=== PATIENT | female | born 1995 | race Caucasian/White ===

== ENCOUNTER 2024-03-05 19:24 | Inpatient (IN) | payer MEDICAID, SELFPAY ==
[2024-03-05 20:15] VITALS: BP 114/78; PULSE 79; RESP 16; TEMP 36.6; O2SAT 96; BMI 21.1
--- NOTE | 2024-03-05 20:50 | ED_ITS ---
HPI - General Adult General Chief complaint: Abdominal Pain Stated complaint: Head pain, stomach pain, altered mental status Time Seen by Provider: 03/05/24 20:49 History of Present Illness HPI narrative: Pt reporting stomach pain, head pain via pointing and facial expressions of pain. Today, new shaking all over per nursing home staff with Blank expressions. Pt is non?verbal. Gallbladder removed around 2015? No rebound tenderness when abd is palpated. Pt did receive Tylenol (1830- 1000mg) and Tums (2 tabs) today. Pt is having bowel movements. 28-year-old woman presenting to the emergency department with concern of likely abdominal pain to his nonverbal. Lives in a nursing home. Various illnesses in the nursing home 4 weeks ago with COVID in the nursing home though she has never tested positive and has been tested every other day. Has been intermittently ?urpy over the last couple of weeks. Today with shaking all over and suspected to be related to pain in her abdomen. Has been having regular normal bowel movements. Status post cholecystectomy. No fever. No vomiting today. Tried some Tylenol and Tums today. With intermittent symptoms as above they have been trying to get in to clinic or some lab draw but all of it is scheduling out a ways. Related Data Home Medications ?Medication ?Instructions ?Recorded ?Confirmed melatonin 3 mg capsule 3 mg PO HS PRN 03/05/24 03/05/24 omeprazole 40 mg capsule,delayed 40 mg PO QAM 03/05/24 03/05/24 release Allergies Allergy/AdvReac Type Severity Reaction Status Date / Time atropine Allergy Intermediate Verified 03/05/24 21:26 Review of Systems Status of ROS: Reports: unobtainable due to medical condition (Parents answering questions) PFSH [facility] Surgical History History of cholecystectomy ?Z90.49 - Acquired absence of other specified parts of digestive tract (ICD- 10) Social History What is your current living situation?: I presently have a place to live Problems where you live: no known problems Problems where you live details: N/A In the past 12 months, utilities in danger of being shut off: no In past 12 months, lack of transportation kept you from medical appts, meetings, work, or getting things needed for daily living: unable to answer In the past 12 mos, have been you worried that your food would run out before you had money to buy more?: unable to answer In the past 12 mos, the food you bought just didn't last and you didn't have money to buy more?: unable to answer Highest level of school completed/degree received: 12th grade, no diploma Smoking Status: Never smoker Do you use any of these nicotine containing products: None Second hand tobacco smoke exposure: No How often do you have a drink containing alcohol: never AUDIT-C Alcohol total score: 0 Non-prescribed substance use: denies use How often does anyone, including family, friends and others, physically hurt you : unable to answer How often does anyone, including family, friends and others, insult or talk down to you: unable to answer How often does anyone, including family, friends and others, threaten you with harm: unable to answer How often does anyone, including family, friends and others, scream or curse at you: unable to answer service: No Exam Narrative: Exam Narrative: Does help with exam as encouraged by parents. Is breathing easily. Lungs appear to be clear. Trace systolic murmur? Heart in regular rate Abdomen is overall soft. No peritoneal signs. Distant bowel sounds. Moving all extremi ties without difficulty. She is well-perfused Const: Vital Signs, click to edit/add: Vital Signs - 24 hr 03/05/24 20:15 03/06/24 01:25 03/06/24 01:25 Temperature 97.9 F 97.9 F Pulse Rate [Left P ulse Oximeter] 79 Pulse Rate [Pulse Oximeter] 78 Respiratory Rate 16 16 16 Blood Pressure [Ri ght Arm] 115/78 Blood Pressure [Ri ght Upper Arm] 114/78 Pulse Oximetry 96 100 100 Oxygen Delivery Me thod Room Air Room Air Room Air Documenting provider has reviewed patient's vital signs: yes Course Vital Signs Vital signs: Initial Vital Signs Temperature 97.9 F 03/05/24 20:15 Temperature Source Temporal Artery Scan 03/05/24 20:15 Pulse Rate 79 03/05/24 20:15 Pulse Rhythm Regular 03/05/24 20:15 Respiratory Rate 16 03/05/24 20:15 Blood Pressure 114/78 03/05/24 20:15 Blood Pressure Mean 90 03/05/24 20:15 Blood Pressure Position Sitting 03/05/24 20:15 Pulse Oximetry 96 03/05/24 20:15 Oxygen Delivery Method Room Air 03/05/24 20:15 Vital Signs Temperature 97.9 F 03/05/24 20:15 Pulse Rate 79 03/05/24 20:15 Respiratory Rate 16 03/05/24 20:15 Blood Pressure 114/78 03/05/24 20:15 Pulse Oximetry 96 03/05/24 20:15 Oxygen Delivery Method Room Air 03/05/24 20:15 Temperature 97.9 F 03/06/24 01:25 Pulse Rate 78 03/06/24 01:25 Respiratory Rate 16 03/06/24 01:25 Blood Pressure 115/78 03/06/24 01:25 Pulse Oximetry 100 03/06/24 01:25 Oxygen Delivery Method Room Air 03/06/24 01:25 Medications Administered Medications: Generic Name Dose Route Start Last Admin Trade Name Freq PRN Reason Stop Dose Admin Sodium Chloride 1,000 mls @ 75 mls/hr 03/06/24 02:43 03/06/24 03:17 0.9 % Sodium Chloride 1000 Ml IV 75 mls/hr .[id number] CLAUDIA Administration Sodium Chloride 5 ml 03/06/24 02:40 03/06/24 03:19 Sodium Chloride 0.9 % (Flush) 10 Ml Syringe IVF 5 ml .FLUSH PRN Administration Discontinued Medications Generic Name Dose Route Start Last Admin Trade Name Freq PRN Reason Stop Dose Admin Sodium Chloride 1,000 mls @ 1,000 mls/hr 03/05/24 21:05 03/05/24 22:35 0.9 % Sodium Chloride 1000 Ml IV 03/05/24 22:04 Infused .Q1H ONE Infusion Medical Decision Making [facility] Narrative Medical decision making narrative: Due to duration of intermittent symptoms and nonverbal nature and unsure degree of pain tolerance I think next level imaging would be necessary to help clarify the situation. Would presume some degree of constipation or possible partial bowel obstruction/ileus. Appendicitis? Mesenteric adenitis? Symptoms do not seem isolated to pelvic organs though leaking ovarian cyst or intermittent torsion could be in differential. I reviewed CT imaging with a marked more gaseous distention of colon and stool retention. INDICATION: Down syndrome patient with intermittent abdominal pain for 2 weeks TECHNIQUE: CT Abdomen and pelvis with i.v. contrast. Coronal and sagittal reformats were obtained. CONTRAST: 58 mL Isovue 370 COMPARISON: None FINDINGS: Lower chest: Unremarkable. Liver: Unremarkable. Spleen: Unremarkable. Pancreas: Unremarkable. Gallbladder: Previous cholecystectomy noted with no significant intra- or extrahepatic biliary ductal dilatation seen. Kidney: Unremarkable. No kidney or ureteral stones or obstruction seen. Adrenal: Unremarkable. Bowel: Severe gaseous distention of the cecum is present measuring 10.4 cm and mild gaseous distention of the transverse colon is noted. Decompressed small bowel loops are seen in the right flank displacing the ascending colon medially. The appendix is normal in appearance and size. Vascular: Unremarkable. Lymph: Unremarkable. Peritoneum: Unremarkable. No pneumoperitoneum is seen. Trace amount of ascites is present and is likely physiologic in origin. Pelvis: An IUD is present in the uterine cavity near the fundus with no identified complications. Soft tissue: Unremarkable. Bone: Unremarkable for age. IMPRESSIONS: 1. Severe gaseous distention of the cecum is present measuring 10.4 cm and mild gaseous distention of the transverse colon is noted. Findings may be due to colonic ileus or prolonged supine positioning. Evacuation of bowel gas may be assisted by placing the patient in right lateral decubitus and subsequently in the prone position. 2. Decompressed small bowel loops are seen in the right flank displacing the ascending colon medially. Findings may be due to a nonobstructing internal hernia. Have discussed these findings with general surgery. Admission with concern of potential pending volvulus Lab Data Lab results reviewed: Yes I reviewed the patient's lab results Labs: Lab Results 03/05/24 03/05/24 Range/Units 21:18 21:23 WBC 6.18 (4.50-11.00) K/uL RBC 4.38 (4.00-5.20) m/uL Hgb 13.6 (12.0-16.0) gm/dL Hct 40.0 (33.0-51.0) % MCV 91 (80-100) fL MCH 31 (26-34) pg MCHC 34 (32-36) gm/dL RDW Coeff of Jose 13.3 (11.5-15.5) % Plt Count 207 (140-440) K/uL Neut % (Auto) 61.4 (42.0-72.0) % Lymph % (Auto) 29.3 (20-44) % [facility] % (Auto) 6.8 (0.0-11.0) % Eos % (Auto) 0.5 (0.0-7.0) % Baso % (Auto) 1.8 (0.0-3.0) % Neut # (Auto) 3.80 (1.7-7.0) K/uL Lymph # (Auto) 1.81 (0.90-2.90) K/uL [facility] [place] # (Auto) 0.40 (0.00-0.90) K/UL Eos # (Auto) 0.03 (0.00-0.50) K/uL Baso # (Auto) 0.11 (0.00-0.30) K/uL Abs Immat Gran (auto) 0.01 (0.00-0.30) K/uL Imm/Tot Granulo (auto) 0.2 % Sodium 137 (135-149) mmol/L Potassium 3.7 (3.6-5.1) mmol/L Chloride 103 (96-114) mmol/L Carbon Dioxide 28 (20-32) mmol/L Anion Gap 6 L (7-15) mEq/L BUN 6 (5-24) mg/dL Creatinine 0.8 (0.5-1.5) mg/dL Estimated Creat Clear 86.61 Estimated GFR 103 ml/min Glucose 96 (60-115) mg/dL Calcium 8.7 (8.4-10.6) mg/dL Total Bilirubin 0.3 (0.1-1.5) mg/dL Direct Bilirubin 0.2 (0.0-0.5) mg/dL AST 24 (12-35) U/L ALT 16 (4-35) U/L Alkaline Phosphatase 105 (40-150) U/L C-Reactive Protein < 0.5 L (0.5-1.0) mg/dL Total Protein 6.7 (6.0-8.3) g/dL Albumin 3.9 (3.3-5.0) g/dL HCG, Qual Negative (Negative) Discharge Plan Discharge Clinical Impression: Colon distention, Abdominal pain Patient Disposition: Admitted As Observation Condition: Stable
--- NOTE | 2024-03-05 21:06 | CRLHL7_ITS ---
For Patients: As a result of the Century Cures Act, medical imaging exams and procedure reports are released immediately into your electronic medical record. You may view this report before your referring provider. If you have questions, please contact your health care provider. INDICATION: Down syndrome patient with intermittent abdominal pain for 2 weeks TECHNIQUE: CT Abdomen and pelvis with i.v. contrast. Coronal and sagittal reformats were obtained. CONTRAST: 58 mL Isovue 370 COMPARISON: None FINDINGS: Lower chest: Unremarkable. Liver: Unremarkable. Spleen: Unremarkable. Pancreas: Unremarkable. Gallbladder: Previous cholecystectomy noted with no significant intra- or extrahepatic biliary ductal dilatation seen. Kidney: Unremarkable. No kidney or ureteral stones or obstruction seen. Adrenal: Unremarkable. Bowel: Severe gaseous distention of the cecum is present measuring 10.4 cm and mild gaseous distention of the transverse colon is noted. Decompressed small bowel loops are seen in the right flank displacing the ascending colon medially. The appendix is normal in appearance and size. Vascular: Unremarkable. Lymph: Unremarkable. Peritoneum: Unremarkable. No pneumoperitoneum is seen. Trace amount of ascites is present and is likely physiologic in origin. Pelvis: An IUD is present in the uterine cavity near the fundus with no identified complications. Soft tissue: Unremarkable. Bone: Unremarkable for age. IMPRESSIONS: 1. Severe gaseous distention of the cecum is present measuring 10.4 cm and mild gaseous distention of the transverse colon is noted. Findings may be due to colonic ileus or prolonged supine positioning. Evacuation of bowel gas may be assisted by placing the patient in right lateral decubitus and subsequently in the prone position. 2. Decompressed small bowel loops are seen in the right flank displacing the ascending colon medially. Findings may be due to a nonobstructing internal hernia. Dictated by Austin Vital MD @ 03/05/2024 11:05:05 PM Please note that all CT scans at this facility use dose modulation, iterative reconstruction, and/or weight-based dosing when appropriate to reduce radiation dose to as low as reasonably achievable. Dictated by: Austin Vital MD @ 03/05/2024 23:05:12 (Electronically Signed)
[2024-03-05 21:29] LABS: Basophils Absolute Auto 0.11 K/uL (0.00-0.30); Basophils Percent Auto 1.8 % (0.0-3.0); Eosinophils Absolute Auto 0.03 K/uL (0.00-0.50); Eosinophils Percent Auto 0.5 % (0.0-7.0); Hemoglobin* 13.6 gm/dL (12.0-16.0); Immature Granulocytes Abs Auto 0.01 K/uL (0.00-0.30); Immature Granulocytes Pct Auto 0.2 %; Lymphocytes Absolute Auto 1.81 K/uL (0.90-2.90); Lymphocytes Percent Auto 29.3 % (20-44); Mean Corpuscular HGB Conc 34 gm/dL (32-36); Mean Corpuscular Hemoglobin 31 pg (26-34); Mean Corpuscular Volume 91 fL (80-100); Monocytes Percent Auto 6.8 % (0.0-11.0); Neutrophils Percent Auto 61.4 % (42.0-72.0); Platelet Count* 207 K/uL (140-440); RDW Coefficient of Variation % 13.3 % (11.5-15.5); Red Blood Count 4.38 m/uL (4.00-5.20); White Blood Count* 6.18 K/uL (4.50-11.00)
[2024-03-05 21:40] LABS: Slide Review Reflex No
[2024-03-05] MEDS: 0.9 % SODIUM CHLORIDE 1000 ml 1,000 ML IV (21:49)
[2024-03-05 21:53] LABS: Albumin* 3.9 g/dL (3.3-5.0); Chloride* 103 mmol/L (96-114)
[2024-03-05 21:54] LABS: Potassium* 3.7 mmol/L (3.6-5.1); Sodium* 137 mmol/L (135-149)
[2024-03-05 21:56] LABS: Anion Gap 6 mEq/L (7-15); Aspartate Amino Transferase* 24 U/L (12-35); Bilirubin Direct* 0.2 mg/dL (0.0-0.5); Bilirubin Total* 0.3 mg/dL (0.1-1.5); Carbon Dioxide* 28 mmol/L (20-32); Creatinine* 0.8 mg/dL (0.5-1.5); Est. Creatinine Clearance* 86.61; Estimated Glomerular Filt Rate 103 ml/min; Total Protein* 6.7 g/dL (6.0-8.3)
[2024-03-05 21:57] LABS: Alanine Aminotransferase* 16 U/L (4-35); Alkaline Phosphatase* 105 U/L (40-150); Blood Urea Nitrogen* 6 mg/dL (5-24); Calcium* 8.7 mg/dL (8.4-10.6); Glucose* 96 mg/dL (60-115)
[2024-03-05 22:00] LABS: C Reactive Protein* < 0.5 mg/dL (0.5-1.0)
[2024-03-05 22:09] LABS: HCG Qualitative Serum* Negative (Negative)
[2024-03-06] VITALS (8 sets, daily range): BP systolic 91–126; BP diastolic 61–87; PULSE 69–93; RESP 16–18; TEMP 36.6–37.2; O2SAT 96–100; BMI 21.5
--- NOTE | 2024-03-06 02:55 | W.PM.THH&P_ITS ---
Telehealth- H&P: HPI History of Present Illness Date Seen: 03/06/24 Chief complaint: Head pain, stomach pain, altered mental status Narrative: Yoselin Johnson is seen as an Interactive Telehealth visit. Yoselin Johnson: This is a 28-year-old female who is a nonverbal, Down syndrome patient who presents to the hospital with abdominal pain. History is provided by the father in the room and by documentation in the chart. When the patient presented to the hospital, she presented to the emergency room with complaints of abdominal pain. [place] [facility] [facility] she has been having episodes of shaking and blank expressions. This was a new issue. She has been having loose stools over the past 24 hours and they described as even normal bowel movements. In the ER she was noted to be vital signs stable. She was given IV fluids. She underwent CT scan of the abdomen which showed severe gaseous distention of the cecum measuring 10 cm and mild gaseous distention of the transverse colon. There is a decompressed small bowel loops. There was concern for colonic ileus. This case was discussed with the surgical team and the ER physician who recommended admission to the hospital and observation. Clinically the patient did not have any peritoneal signs. Conversation held with father who explained to me that recently the patient had been on a trial of antibiotics. 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 It is a rare condition that can occur in patients with strep throat. As result she has been on a variety of antibiotics to treat her strep A infections. Patient's father notes that she has had some episodes of diarrhea lately. Review of Systems Status of ROS: Reports: unobtainable due to medical condition (patient is non- verbal) PFSH PFS Social History Smoking Status: Never smoker How often do you have a drink containing alcohol: never AUDIT-C Alcohol total score: 0 Non-prescribed substance use: denies use Meds Home Medications and Allergies Home Medications ?Medication ?Instructions ?Recorded ?Confirmed ?Type melatonin 3 mg capsule 3 mg PO HS PRN 03/05/24 03/05/24 History omeprazole 40 mg capsule,delayed 40 mg PO QAM 03/05/24 03/05/24 History release Allergies Allergy/AdvReac Type Severity Reaction Status Date / Time atropine Allergy Intermediate Verified 03/05/24 21:26 Exam Narrative Exam Narrative: Physical Exam GENERAL: ?vital signs reviewed, well developed and nourished, in no distress HEENT: pupils are equal round and reactive to light, extraocular movements are grossly within normal limits and oral mucosa is moist. NECK: Supple without lymphadenopathy or thyromegaly according to nursing staff examination observation HEART: Regular rate and rhythm without any rubs, murmurs, or gallops. LUNGS: Clear to auscultation bilaterally with good air movement throughout ABDOMEN: Observation from nurse assisted exam, Positive bowel sounds noted. EXTREMITIES: ? No focal strength deficit is observed. SKIN:? Observed warm and dry with color normal Const Vital Signs, click to edit/add: Vital Signs - 24 hr 03/05/24 20:15 Temperature 97.9 F Pulse Rate [Left Pulse Oximeter] 79 Respiratory Rate 16 Blood Pressure [Right Upper Arm] 114/78 Pulse Oximetry 96 Oxygen Delivery Method Room Air Common normals: no apparent distress General appearance: cooperative and comfortable Orientation/consciousness: Yes awake Eye Common normals: PERRL and EOMs intact bilaterally Pupil: PERRL Resp Common normals: normal respiratory effort Neuro Sensorium/orientation: awake Hospitalist - H&P: Result Labs Labs: Short CBC 03/05/24 Range/Units 21:23 WBC 6.18 (4.50-11.00) K/uL Hgb 13.6 (12.0-16.0) gm/dL Hct 40.0 (33.0-51.0) % Plt Count 207 (140-440) K/uL BMP 03/05/24 21:23 Sodium 137 Potassium 3.7 Chloride 103 Carbon Dioxide 28 BUN 6 Creatinine 0.8 Glucose 96 Calcium 8.7 Liver Function 03/05/24 Range/Units 21:23 Total Bilirubin 0.3 (0.1-1.5) mg/dL Direct Bilirubin 0.2 (0.0-0.5) mg/dL AST 24 (12-35) U/L ALT 16 (4-35) U/L Alkaline Phosphatase 105 (40-150) U/L Albumin 3.9 (3.3-5.0) g/dL Assessment and Plan Assessment and plan (1) Abdominal pain: Status: Acute (2) Colon distention: Status: Acute Plan This patient appears to have a colonic ileus. Differentials include constipation and other conditions such as potential volvulus. However I would also want to rule out that this patient does not have C. difficile infection especially given the recent antibiotic and diarrhea illness. A portion of patients who have C. difficile present with atypical presentations of ileus. In the meantime I like to keep the patient as n.p.o. and put her on normal saline at 75 mL/h. The surgical team has been alerted about this patient and plans to see the patient in the morning. Total Time Spent Total Time Spent: Telehealth Visit Today's History and Physical is provided via interactive telehealth by Dr. Tony Branch MD. Patient is located at [facility]. Provider is located at [facility]. Nursing staff assisted with the patient's examination. The visit being done today meets criteria for a telehealth visit and the patient or patient's parent and/or gaurdian is aware the visit is a telehealth visit. Camera Start Time 2:50 AM Camera End Time 3:05 AM Telehealth: Statement Statement Telehealth Visit: Today's History and Physical is provided via interactive telehealth by Tony Branch MD.? Patient is located at [facility].? Provider is located at [facility].? Nursing staff assisted with the patient's exam. The visit being done today meets criteria for a telehealth visit and the patient or patient?s parent/guardian is aware the visit is a telehealth visit. Camera Start Time: 02:50 Camera End Time: 03:05
[2024-03-06] MEDS: 0.9 % SODIUM CHLORIDE 1000 ml 1,000 ML 75 ML IV ×2 (03:17→14:18)
[2024-03-06] MEDS: SODIUM CHLORIDE 0.9 % (FLUSH) 10 ML SYRINGE 5 ML IVF (03:19)
--- NOTE | 2024-03-06 07:35 | PC.NURSE ---
end of shift note: pleasant non-verbal young lady who presents to the unit for medial abdominal pain. pt resides at [facility]. father (alli) accompanies pt and providing much of pt's history. pt ambulates independently within room. passing flatus. several loose stools in the last couple weeks per father's report. per pt pain increases with sitting, bending, and palpation. pt and father slept well remainder of night.
--- NOTE | 2024-03-06 08:54 | CRLHL7_ITS ---
For Patients: As a result of the Century Cures Act, medical imaging exams and procedure reports are released immediately into your electronic medical record. You may view this report before your referring provider. If you have questions, please contact your health care provider. Indication: Colonic distention Technique: Abdomen 1 view, 2 films Comparison: None Findings/Impression: Bowel: No evidence of obstruction. Moderate amount of stool within the colon including across the hepatic flexure and rectosigmoid. Soft tissues: Intrauterine device projects over the pelvis. Right upper quadrant surgical clips. Bones: Unremarkable for age. Dictated by Andre Cole MD @ 03/06/2024 9:45:51 AM (Electronically Signed)
[2024-03-06 09:12] LABS: Appearance Urine Clear (Clear); Bilirubin Urine Negative (Negative); Blood Urine Negative (Negative); Color Urine Yellow (Yellow); Glucose Urine Negative (Negative); Ketones Urine Negative (Negative); Leukocyte Esterase Urine Negative (Negative); Nitrite Urine Negative (Negative); Protein Urine Negative (Negative); Specific Gravity Urine 1.015 (1.000-1.030); Urobilinogen Urine 0.2 (0.2-1.0)
[2024-03-06 09:22] LABS: RBC Urine 0-2 (0-2); Squamous Epithelial Cell Urine Few (None-Few); WBC Urine 0-2 (0-5)
[2024-03-06 12:13] LABS: C.Difficile Negative (Negative); CDIFFEPI 027 PRESUMPTIVE NEGATIVE (Negative)
[2024-03-06] MEDS: polyethylene glycoL 3350 17 GM PACK PO ×3 (12:39→15:46)
--- NOTE | 2024-03-06 13:28 | P.GSCN_ITS ---
Documented by User: Bettina Escobar 03/06/24 14:13 History of Present Illness Consult details Time Seen by Provider: 11:30 Date Seen: 03/06/24 Consult date: 03/06/24 Reason for consult: abdominal pain Requesting physician: Christopher Prince Narrative: Yoselin, a 28 year old non-verbal down syndrome female, presented to the ED yesterday for abdominal pain. Patient's mom and dad are bedside and provide the history from the residential the patient resides in. Patient began to have abdominal pain starting around 2 weeks ago. Her body language and mannerisms began to change in response to the pain. Patient would point to the center of her chest and stomach in response to the pain. Pain seems to have been on and off the first week and consistent the second week with more facial grimacing and shaking/bearing down. Changing positioning seems to aggravate it. Tried Tylenol and Tums to help with the pain. Patient has had soft, formed, consistent bowel movements throughout the course of the pain. Denies blood or mucus in the stool. Denies diarrhea, constipation, vomiting, fever, or any other signs of infection. Last EGD in 2015. Patient was diagnosed with gastritis post cholecystectomy. Additional GI diagnoses include celiac disease. No additional abdominal surgeries. No colonoscopy history. No blood thinner use. No blood clot history. No bleeding disorder history. No adverse reaction to anesthesia. Dad expresses that the patient has been on antibiotics in November, December, and January due to high Strep A counts and the suspicion for PANDAS due to the neurological changes they saw in the patient and the resolution of symptoms with antibiotics. He expresses concern that the antibiotics may have added to the patient's symptoms. Patient seen laying in bed on her ipad. Parents state her abdominal pain seems to be manageable since admission. Review of Systems Status of ROS: Reports: 6 or more systems reviewed and unremarkable except as noted in History and below Narrative: Reports diffuse middle abdominal pain. Denies diarrhea, constipation, vomiting, fever, or any other signs of infection. Denies blood or mucus in the stool. PFSH PFS Surgical History History of cholecystectomy ?Z90.49 - Acquired absence of other specified parts of digestive tract (ICD- 10) Social History What is your current living situation?: I presently have a place to live Problems where you live: no known problems Problems where you live details: N/A In the past 12 months, utilities in danger of being shut off: no In past 12 months, lack of transportation kept you from medical appts, meetings, work, or getting things needed for daily living: unable to answer In the past 12 mos, have been you worried that your food would run out before you had money to buy more?: unable to answer In the past 12 mos, the food you bought just didn't last and you didn't have money to buy more?: unable to answer Highest level of school completed/degree received: 12th grade, no diploma Smoking Status: Never smoker Do you use any of these nicotine containing products: None Second hand tobacco smoke exposure: No How often do you have a drink containing alcohol: never AUDIT-C Alcohol total score: 0 Non-prescribed substance use: denies use How often does anyone, including family, friends and others, physically hurt you : unable to answer How often does anyone, including family, friends and others, insult or talk down to you: unable to answer How often does anyone, including family, friends and others, threaten you with harm: unable to answer How often does anyone, including family, friends and others, scream or curse at you: unable to answer service: No Meds Home Medications and Allergies Home Medications ?Medication ?Instructions ?Recorded ?Confirmed ?Type melatonin 3 mg capsule 3 mg PO HS PRN 03/05/24 03/05/24 History omeprazole 40 mg capsule,delayed 40 mg PO QAM 03/05/24 03/05/24 History release Allergies Allergy/AdvReac Type Severity Reaction Status Date / Time atropine Allergy Intermediate Verified 03/05/24 21:26 Exam Narrative: Exam Narrative: General: Patient seen laying in bed on her ipad. Non-verbal. In no acute distress. Respiratory: Clear to auscultation. No wheezing or rhonchi. Cardio: RRRR. S1 and S2 normal. GI: Non distended. Bowel sounds presents but slightly hypoactive. Soft. Non- tender. No guarding. Const: Vital Signs, click to edit/add: Vital Signs - 24 hr 03/05/24 20:15 03/06/24 01:25 03/06/24 01:25 Temperature 97.9 F 97.9 F Pulse Rate [Left P ulse Oximeter] 79 Pulse Rate [Pulse Oximeter] 78 Respiratory Rate 16 16 16 Blood Pressure [Ri ght Arm] 115/78 Blood Pressure [Ri ght Upper Arm] 114/78 Pulse Oximetry 96 100 100 Oxygen Delivery Me thod Room Air Room Air Room Air 03/06/24 08:15 03/06/24 08:15 03/06/24 12:04 Temperature 98.1 F 98.3 F Pulse Rate [Left P ulse Oximeter] Pulse Rate [Pulse Oximeter] 69 69 83 Respiratory Rate 16 16 18 Blood Pressure [Ri ght Arm] 91/61 112/70 Blood Pressure [Ri ght Upper Arm] Pulse Oximetry 96 100 Oxygen Delivery Me thod Room Air Room Air Results Labs Labs: Abnormal lab results 03/05/24 Range/Units 21:23 Anion Gap 6 L (7-15) mEq/L C-Reactive Protein < 0.5 L (0.5-1.0) mg/dL Diabetes panel 03/05/24 Range/Units 21:23 Sodium 137 (135-149) mmol/L Potassium 3.7 (3.6-5.1) mmol/L Chloride 103 (96-114) mmol/L Carbon Dioxide 28 (20-32) mmol/L BUN 6 (5-24) mg/dL Creatinine 0.8 (0.5-1.5) mg/dL Glucose 96 (60-115) mg/dL Calcium 8.7 (8.4-10.6) mg/dL AST 24 (12-35) U/L ALT 16 (4-35) U/L Alkaline Phosphatase 105 (40-150) U/L Total Protein 6.7 (6.0-8.3) g/dL Albumin 3.9 (3.3-5.0) g/dL Calcium panel 03/05/24 Range/Units 21:23 Calcium 8.7 (8.4-10.6) mg/dL Albumin 3.9 (3.3-5.0) g/dL Pituitary panel 03/05/24 Range/Units 21:23 Sodium 137 (135-149) mmol/L Potassium 3.7 (3.6-5.1) mmol/L Chloride 103 (96-114) mmol/L Carbon Dioxide 28 (20-32) mmol/L BUN 6 (5-24) mg/dL Creatinine 0.8 (0.5-1.5) mg/dL Glucose 96 (60-115) mg/dL Calcium 8.7 (8.4-10.6) mg/dL Adrenal panel 03/05/24 Range/Units 21:23 Sodium 137 (135-149) mmol/L Potassium 3.7 (3.6-5.1) mmol/L Chloride 103 (96-114) mmol/L Carbon Dioxide 28 (20-32) mmol/L BUN 6 (5-24) mg/dL Creatinine 0.8 (0.5-1.5) mg/dL Glucose 96 (60-115) mg/dL Calcium 8.7 (8.4-10.6) mg/dL Total Bilirubin 0.3 (0.1-1.5) mg/dL AST 24 (12-35) U/L ALT 16 (4-35) U/L Alkaline Phosphatase 105 (40-150) U/L Total Protein 6.7 (6.0-8.3) g/dL Albumin 3.9 (3.3-5.0) g/dL All other labs normal. WBC WNL at 6.18. Electrolytes WNL. Bili WNL at 0.3. LFTs WNL. CRP WNL at 0.5. Imaging Abdomen CT scan report/results: report reviewed and image reviewed Abdominal ultrasound report/results: report reviewed and image reviewed Additional studies: Abdominal/Pelvis CT on 03/05/24: 1. Severe gaseous distention of the cecum is present measuring 10.4 cm and mild gaseous distention of the transverse colon is noted. Findings may be due to colonic ileus or prolonged supine positioning. Evacuation of bowel gas may be assisted by placing the patient in right lateral decubitus and subsequently in the prone position. 2. Decompressed small bowel loops are seen in the right flank displacing the ascending colon medially. Findings may be due to a nonobstructing internal hernia. Abdominal ultrasound on 03/06/24: Bowel: No evidence of obstruction. Moderate amount of stool within the colon including across the hepatic flexure and rectosigmoid. Progress Note:A&P Assessment and plan (1) Colon distention: Status: Acute Assessment and Plan: Patient is a 28 year old non-verbal down syndrome female with a two week history of abdominal pain. Imaging showed distension of the cecum and transverse colon with no evidence of obstruction. 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 Vitals WNL. Unremarkable labs. Physical exam is unremarkable. Surgery in not indicated at this moment. Plan: -CLD -IV fluids -IV pain medication -Serial physical exams -Abdominal radiographs every 12-24 hours to evaluate colon diameter. -Encourage ambulation. Bettina SANTANA-S personally scribed for Dr. Joshi and completed the HPI, physical exam, and chart. Documented by User: Lali Joshi MD 03/06/24 14:21 History of Present Illness Consult details Consult date: 03/06/24 Review of Systems Status of ROS: Reports: unobtainable due to medical condition PFSH PFS Surgical History History of cholecystectomy ?Z90.49 - Acquired absence of other specified parts of digestive tract (ICD- 10) Social History What is your current living situation?: I presently have a place to live Problems where you live: no known problems Problems where you live details: N/A In the past 12 months, utilities in danger of being shut off: no In past 12 months, lack of transportation kept you from medical appts, meetings, work, or getting things needed for daily living: unable to answer In the past 12 mos, have been you worried that your food would run out before you had money to buy more?: unable to answer In the past 12 mos, the food you bought just didn't last and you didn't have money to buy more?: unable to answer Highest level of school completed/degree received: 12th grade, no diploma Smoking Status: Never smoker Do you use any of these nicotine containing products: None Second hand tobacco smoke exposure: No How often do you have a drink containing alcohol: never AUDIT-C Alcohol total score: 0 Non-prescribed substance use: denies use How often does anyone, including family, friends and others, physically hurt you : unable to answer How often does anyone, including family, friends and others, insult or talk down to you: unable to answer How often does anyone, including family, friends and others, threaten you with harm: unable to answer How often does anyone, including family, friends and others, scream or curse at you: unable to answer service: No Meds Home Medications and Allergies Home Medications ?Medication ?Instructions ?Recorded ?Confirmed ?Type melatonin 3 mg capsule 3 mg PO HS PRN 03/05/24 03/05/24 History omeprazole 40 mg capsule,delayed 40 mg PO QAM 03/05/24 03/05/24 History release Allergies Allergy/AdvReac Type Severity Reaction Status Date / Time atropine Allergy Intermediate Verified 03/05/24 21:26 Results Imaging Abdominal x-ray: report reviewed and image reviewed Progress Note:A&P Assessment and plan (1) Colon distention: Status: Acute Assessment and Plan: Patient is a 28 year old non-verbal down syndrome female with a two week history of abdominal pain. Imaging showed significant distension of the cecum (10.2 cm) and transverse colon with no evidence of obstruction. Concern for [place] vs primary colonic dysmotility. Patient is not on any anticholinergics or antipsychotics. Vitals WNL. Unremarkable labs. Physical exam is unremarkable. Recommend conservative management at this time. Plan: -ok for clear liquid diet -IV fluids -IV pain medication, recommend sparing use -Serial physical exams -Abdominal radiographs every 12-24 hours to evaluate colon diameter. - tap water enemas, will consider gastrograffin enema if not productive - miralax, ok with patient not having any nausea or vomiting -Encourage ambulation. Bettina LOGAN personally scribed for Dr. Joshi and completed the HPI, physical exam, and chart.
--- NOTE | 2024-03-06 15:11 | P.IMPN_ITS ---
Progress Note: A&P Assessment and plan (1) Abdominal pain: Problem details: Suspected to be due to colonic pseudo-obstruction. Responding well to enema and oral MiraLax. Continue to monitor for symptoms and repeat imaging. Status: Acute (2) Colonic pseudoobstruction: Problem details: Likely cause of abdominal pain. Responding to conservative measures. Status: Acute (3) Down syndrome: Status: Acute (4) Celiac disease: Status: Acute (5) History of esophagogastroduodenoscopy (EGD): Problem details: Most recently August 2016 Status: Acute Plan Continue in hospital for management of colonic pseudo-obstruction and constipation. Ongoing evaluation of abdominal pain. Time Spent With Patient Total time spent: 55 minutes Subjective Date Seen: 03/06/24 Interval history: 28-year-old female with down syndrome from [facility] presents with recent history of abdominal pain and abnormal behaviors. She is nonverbal but has indicated to staff that she seems to have some discomfort. She seems in some distress and this is reflected in a change in her behavior as well. She has not had any other obvious signs of illness such as respiratory illness o r fever. She has been eating normally. According to her mother she has been having soft daily bowel movements as well. She does have a history of constipation and was on MiraLax up until a couple years ago. She has been diagnosed with celiac disease on biopsy. She is lactose intolerance and has avoided night shade bed she doubles due to those causing diarrhea. She has had previous cholecystectomy and upper endoscopy on 2 different occasions. Exam Narrative: Exam Narrative: She is alert and appears in no distress. Seen with her parents. She is nonverbal but appears to follow simple instructions and answer simple questions with hand gestures and nonverbal communication. She cooperates well. Respirations are clear to auscultation. Cardiovascular: S1, S2, regular rate and rhythm. Abdomen with active bowel sounds. Abdomen is soft. She has relatively diffuse guarding but no obvious tenderness. No mass with limited examination. External genitalia normal. No rash Const: Vital Signs, click to edit/add: Vital Signs - 24 hr 03/05/24 20:15 03/06/24 01:25 03/06/24 01:25 Temperature 97.9 F 97.9 F Pulse Rate [Left P ulse Oximeter] 79 Pulse Rate [Pulse Oximeter] 78 Respiratory Rate 16 16 16 Blood Pressure [Ri ght Arm] 115/78 Blood Pressure [Ri ght Upper Arm] 114/78 Pulse Oximetry 96 100 100 Oxygen Delivery Me thod Room Air Room Air Room Air 03/06/24 08:15 03/06/24 08:15 03/06/24 12:04 Temperature 98.1 F 98.3 F Pulse Rate [Left P ulse Oximeter] Pulse Rate [Pulse Oximeter] 69 69 83 Respiratory Rate 16 16 18 Blood Pressure [Ri ght Arm] 91/61 112/70 Blood Pressure [Ri ght Upper Arm] Pulse Oximetry 96 100 Oxygen Delivery Me thod Room Air Room Air Documenting provider has reviewed patient's vital signs: yes Labs Labs: Laboratory Results - last 24 hr 03/05/24 03/05/24 03/06/24 21:18 21:23 09:04 WBC 6.18 RBC 4.38 Hgb 13.6 Hct 40.0 MCV 91 MCH 31 MCHC 34 RDW Coeff of Jose 13.3 Plt Count 207 Neut % (Auto) 61.4 Lymph % (Auto) 29.3 [place] % (Auto) 6.8 Eos % (Auto) 0.5 Baso % (Auto) 1.8 Neut # (Auto) 3.80 Lymph # (Auto) 1.81 [place] # (Auto) 0.40 Eos # (Auto) 0.03 Baso # (Auto) 0.11 Abs Immat Gran (auto) 0.01 Imm/Tot Granulo (auto) 0.2 Sodium 137 Potassium 3.7 Chloride 103 Carbon Dioxide 28 Anion Gap 6 L BUN 6 Creatinine 0.8 Estimated Creat Clear 86.61 Estimated GFR 103 Glucose 96 Calcium 8.7 Total Bilirubin 0.3 Direct Bilirubin 0.2 AST 24 ALT 16 Alkaline Phosphatase 105 C-Reactive Protein < 0.5 L Total Protein 6.7 Albumin 3.9 HCG, Qual Negative Urine Color Yellow Urine Appearance Clear Urine pH 7.0 Ur Specific Stevenson 1.015 Urine Protein Negative Urine Glucose (UA) Negative Urine Ketones Negative Urine Blood Negative Urine Nitrite Negative Urine Bilirubin Negative Urine Urobilinogen 0.2 Ur Leukocyte Esterase Negative Urine RBC 0-2 Urine WBC 0-2 Ur Squamous Epith Cells Few Urine Bacteria None Stl C. diff Tox B Gene Stl C. diff [id number] 03/06/24 11:05 WBC RBC Hgb Hct MCV MCH MCHC RDW Coeff of Jose Plt Count Neut % (Auto) Lymph % (Auto) [place] % (Auto) Eos % (Auto) Baso % (Auto) Neut # (Auto) Lymph # (Auto) [place] # (Auto) Eos # (Auto) Baso # (Auto) Abs Immat Gran (auto) Imm/Tot Granulo (auto) Sodium Potassium Chloride Carbon Dioxide Anion Gap BUN Creatinine Estimated Creat Clear Estimated GFR Glucose Calcium Total Bilirubin Direct Bilirubin AST ALT Alkaline Phosphatase C-Reactive Protein Total Protein Albumin HCG, Qual Urine Color Urine Appearance Urine pH Ur Specific Stevenson Urine Protein Urine Glucose (UA) Urine Ketones Urine Blood Urine Nitrite Urine Bilirubin Urine Urobilinogen Ur Leukocyte Esterase Urine RBC Urine WBC Ur Squamous Epith Cells Urine Bacteria Stl C. diff Tox B Gene Negative Stl C. diff [id number] PRESUMPTIVE NEGATIVE
--- NOTE | 2024-03-06 16:41 | PC.NURSE ---
Shift [id number]: Pt is pleasant, alert and non-verbal at baseline. Pt. has Father (Sandip) and mother (Marcia) at bedside to assist with communication. Pt has pain in the abdominal area, noted by faces scale, motioning and grimace. Pt had and enema this morning with positive response. Flatus and bowel movements have been present since. Pt is up with stand by assist, tolerates well. Advanced to a clear liquid diet and tolerating well.
--- NOTE | 2024-03-06 18:00 | CRLHL7_ITS ---
For Patients: As a result of the Century Cures Act, medical imaging exams and procedure reports are released immediately into your electronic medical record. You may view this report before your referring provider. If you have questions, please contact your health care provider. INDICATION: Colonic distention TECHNIQUE: Two view abdomen. FINDINGS: Mild gaseous distention of bowel loops. No bowel obstruction seen bowel gas pattern nonspecific. Cholecystectomy clips. Dextroconvex curvature of the lumbar spine. Moderate stool burden. IUD in the pelvis Dictated by Alyssa Peoples MD @ 03/06/2024 6:50:09 PM (Electronically Signed)
[2024-03-06] MEDS: ACETAMINOPHEN 325 MG TABLET 650 MG PO (19:06)
--- NOTE | 2024-03-06 19:31 | PC.NURSE ---
End of shift-- Very pleasant and cooperative, alert, but baseline non-verbal patient. VSS and highest temp this shift 99.0F Pt occasionally appeared to have abdominal pain, but it appears to resolve quickly without intervention. LS CTA. She tolerated small amounts of clear liquids without difficulty. Pt was up to the BR with SBA and tolerated it well. She has continued to have loose stools this evening. Parents at bedside today and appear loving and supportive. Report to JYOTI Snider. All questions answered.
[2024-03-07 03:00] VITALS: BP 107/71; PULSE 81; RESP 18; TEMP 36.5; O2SAT 97
[2024-03-07] MEDS: 0.9 % SODIUM CHLORIDE 1000 ml 1,000 ML 75 ML IV (03:16)
--- NOTE | 2024-03-07 06:32 | PC.NURSE ---
End of shift : Pt has been A&O, VSS and afebrile. PRN Tylenol was given at beginning of the shift for low grade temp of 99 for previous nurse. Per parents, pt usually runs in the 97 range. She has not c/o pain overnight. Denies nausea & lightheadedness. PIV in left AC infusing NS @ 75 mL/hr. She is SBA for ambulation & transfers. Continent of B&B. She?s had x3 small liquid BM?s overnight. Tolerating clear liquids well. Pt slept well in between cares. ?
[2024-03-07 07:00] VITALS: BP 107/70; PULSE 75; RESP 18; TEMP 36.3; O2SAT 95
--- NOTE | 2024-03-07 09:49 | CRLHL7_ITS ---
For Patients: As a result of the Century Cures Act, medical imaging exams and procedure reports are released immediately into your electronic medical record. You may view this report before your referring provider. If you have questions, please contact your health care provider. Indication: Follow-up colonic pseudo-obstruction Technique: Supine images of the abdomen Comparison: March 06, 2024 Findings: Cetera collapse in the right upper quadrant. No acute osseous abnormality. Scoliosis. IUD in the central pelvis. Mild gaseous distention of bowel slightly improved when compared to the prior examination. Impression: Mild diffuse gaseous distention of bowel slightly improved when compared to the prior examination. Dictated by Gianluca Ugalde MD @ 03/07/2024 10:31:33 AM (Electronically Signed)
--- NOTE | 2024-03-07 11:29 | PM.GSPN ---
Subjective Subjective Date Seen: 03/07/24 Interval history: Patient is nonverbal. Dad is at bedside. He does think she looks more comfortable. She did have multiple bowel movements yesterday. She has been tolerating liquids without difficulty. No concerns. Exam Narrative: Exam Narrative: General: Alert and oriented, no acute distress Abdomen: Soft, nontender and nondistended Const: Vital Signs, click to edit/add: Vital Signs - 24 hr 03/06/24 12:04 03/06/24 15:00 03/06/24 15:47 Temperature 98.3 F 98.4 F Pulse Rate [Pulse Oximeter] 83 93 93 Respiratory Rate 18 18 18 Blood Pressure [Ri ght Arm] 112/70 126/87 Pulse Oximetry 100 100 Oxygen Delivery Me thod Room Air Room Air 03/06/24 20:28 03/06/24 20:30 03/06/24 23:49 Temperature 98.9 F 98.9 F Pulse Rate [Pulse Oximeter] 80 81 Respiratory Rate 16 18 Blood Pressure [Ri ght Arm] 120/84 Pulse Oximetry 100 Oxygen Delivery Me thod Room Air 03/06/24 23:49 03/07/24 03:00 03/07/24 07:00 Temperature 98.8 F 97.7 F 97.4 F L Pulse Rate [Pulse Oximeter] 81 81 75 Respiratory Rate 18 18 18 Blood Pressure [Ri ght Arm] 107/65 107/71 107/70 Pulse Oximetry 100 97 95 Oxygen Delivery Me thod Room Air Room Air Room Air 03/07/24 07:00 Temperature Pulse Rate [Pulse Oximeter] 75 Respiratory Rate 18 Blood Pressure [Ri ght Arm] Pulse Oximetry Oxygen Delivery Me thod Labs/Imaging Imaging Imaging: Abdominal x-ray showing gaseous distention of the colon, improved compared to yesterday. Progress Note:A&P Assessment and plan (1) Colon distention: Status: Acute Assessment and Plan: Patient is a 28 year old non-verbal down syndrome female with a two week history of abdominal pain. Imaging concerning for [place]'s with cecal dilation of greater than 10 cm. She has had multiple bowel movements since admission with abdominal x-ray demonstrating less stool burden. Abdominal exam is benign pain improved. Okay to advance diet. Recommend patient continue on a bowel regimen of MiraLax and fiber daily.
--- NOTE | 2024-03-07 13:42 | P.DS_ITS ---
DS: Providers Provider Date Seen: 03/07/24 Date of admission: 03/06/24 02:40 Primary care physician: Niesha Michele PA-C Admitting Clinician: Tony Branch MD Attending Physician on discharge: Fredy Prince MD Date of Discharge: 03/07/24 DS: Diagnosis Discharge Diagnosis (1) Colonic pseudoobstruction: Status: Acute Problem details: Likely cause of abdominal pain. Responding to conservative measures. Plan ongoing outpatient regimen with daily MiraLax and Metamucil so that she can have at least 1 formed but soft stool every day DS: Summary Hospital Course Hospital Course: 28-year-old female with down syndrome from [facility] presents with recent history of abdominal pain and abnormal behaviors. She is nonverbal but has indicated to staff that she seems to have some discomfort. She seems in some distress and this is reflected in a change in her behavior as well. She has not had any other obvious signs of illness such as respiratory illness or fever. She has been eating normally. According to her mother she has been having soft daily bowel movements as well. She does have a history of constipation and was on MiraLax up until a couple years ago. She has been diagnosed with celiac disease on biopsy. She is lactose intolerance and has avoided night shade bed she doubles due to those causing diarrhea. She has had previous cholecystectomy and upper endoscopy on 2 different occasions. 03/07/2024: Patient is seen with her parents for follow-up of her [facility]. She has had small loose stools yesterday and overnight. She is tolerating clear liquid diet and now tolerating a regular diet. No vomiting. Status at Discharge Overall status at discharge: patient is progressing back to baseline Time Spent with Patient Time attestation: Total time spent providing and/or coordinating discharge services: 40 minutes Time spent: Greater than 30 minutes Exam Narrative: Exam Narrative: She is pleasant and cooperative. She appears to understand my speech but remains nonverbal. She does communicate somewhat by facial expression and nodding and pointing. She appears in no distress. Abdomen with bowel sounds are active. Abdomen is soft without tenderness. Const: Vital Signs, click to edit/add: Vital Signs - 24 hr 03/06/24 15:00 03/06/24 15:47 03/06/24 20:28 Temperature 98.4 F 98.9 F Pulse Rate [Pulse Oximeter] 93 93 Respiratory Rate 18 18 Blood Pressure [Ri ght Arm] 126/87 Pulse Oximetry 100 Oxygen Delivery Me thod Room Air 03/06/24 20:30 03/06/24 23:49 03/06/24 23:49 Temperature 98.9 F 98.8 F Pulse Rate [Pulse Oximeter] 80 81 81 Respiratory Rate 16 18 18 Blood Pressure [Ri ght Arm] 120/84 107/65 Pulse Oximetry 100 100 Oxygen Delivery Me thod Room Air Room Air 03/07/24 03:00 03/07/24 07:00 03/07/24 07:00 Temperature 97.7 F 97.4 F L Pulse Rate [Pulse Oximeter] 81 75 75 Respiratory Rate 18 18 18 Blood Pressure [Ri ght Arm] 107/71 107/70 Pulse Oximetry 97 95 Oxygen Delivery Me thod Room Air Room Air DS: Data Imaging CT scan - abdomen: Radiologist's impression: INDICATION: Down syndrome patient with intermittent abdominal pain for 2 weeks TECHNIQUE: CT Abdomen and pelvis with i.v. contrast. Coronal and sagittal reformats were obtained. CONTRAST: 58 mL Isovue 370 COMPARISON: None FINDINGS: Lower chest: Unremarkable. Liver: Unremarkable. Spleen: Unremarkable. Pancreas: Unremarkable. Gallbladder: Previous cholecystectomy noted with no significant intra- or extrahepatic biliary ductal dilatation seen. Kidney: Unremarkable. No kidney or ureteral stones or obstruction seen. Adrenal: Unremarkable. Bowel: Severe gaseous distention of the cecum is present measuring 10.4 cm and mild gaseous distention of the transverse colon is noted. Decompressed small bowel loops are seen in the right flank displacing the ascending colon medially. The appendix is normal in appearance and size. Vascular: Unremarkable. Lymph: Unremarkable. Peritoneum: Unremarkable. No pneumoperitoneum is seen. Trace amount of ascites is present and is likely physiologic in origin. Pelvis: An IUD is present in the uterine cavity near the fundus with no identified complications. Soft tissue: Unremarkable. Bone: Unremarkable for age. IMPRESSIONS: 1. Severe gaseous distention of the cecum is present measuring 10.4 cm and mild gaseous distention of the transverse colon is noted. Findings may be due to colonic ileus or prolonged supine positioning. Evacuation of bowel gas may be assisted by placing the patient in right lateral decubitus and subsequently in the prone position. 2. Decompressed small bowel loops are seen in the right flank displacing the ascending colon medially. Findings may be due to a nonobstructing internal hernia. Discharge Plan Discharge Disposition: Home w/ Parent or Adult Date of Admission: 03/06/24 02:40 Attending Provider on Discharge: Christopher Prince Consulting Providers: Lali Joshi Primary Care Provider: Niesha Michele Condition: Stable Anticipated Discharge Date/Time: 03/07/24 11:33 Discharge Medications: New polyethylene glycol 3350 [Miralax] 17 gram/dose powder 17 g PO DAILY Qty: 510 3RF Metamucil 3.4 gram/5.4 gram powder 1 tbsp PO DAILY Qty: 660 3RF Rx Instructions: mix into at least 8 oz of water or juice before administering Continued melatonin 3 mg capsule 3 mg PO HS PRN omeprazole 40 mg capsule,delayed release(DR/EC) 40 mg PO QAM Discharge Orders: Discharge Order (Routine); Ordered 03/07/24 Ordered By: Christopher Prince Patient Education: Laxative, Bulk-forming (By mouth), Polyethylene Glycol 3350 (By mouth), Bowel Obstruction (DC) Additional Instructions: Monitor bowel function to make sure you are having a a soft bowel movement every day. Activity Level: No Restrictions Discharge Diet: Regular Follow Up Appointments: Niesha Michele, EDILBERTO [Primary Care Provider] - 03/19/24 2:00 pm ([facility] for follow up with PCP) Forms: MobileHelp Info Instructions
== END 2024-03-07 14:24 | disposition home or self-care (01) | DRG 254 ==
LOC: ED 23:58 → MEDSURG 03-06 01:11
PROVIDERS: Family Medicine; Admitting Provider Student in an Organized Health Care Education/Training Program; Emergency Provider Family Medicine; PCP Physician Assistant Medical; Visit Provider Student in an Organized Health Care Education/Training Program
DX: K63.89 Other specified diseases of intestine (principal); R10.9 Unspecified abdominal pain; Z90.49 Acquired absence of other specified parts of digestive tract; Q90.9 Down syndrome, unspecified; K90.0 Celiac disease; D89.89 Other specified disorders involving the immune mechanism, not elsewhere classified; E73.9 Lactose intolerance, unspecified; F81.9 Developmental disorder of scholastic skills, unspecified
CPT/HCPCS: 36415; 74018; 74177; 80048; 80076; 81001; 84703; 85025; 86140; 87081; 87493; 99284; 99285; A9270; J7030; Q9967

== ENCOUNTER 2024-03-17 09:37 | Emergency (ER) | payer MEDICAID, SELFPAY ==
[2024-03-17 10:03] VITALS: BP 111/66; PULSE 80; RESP 18; TEMP 36.6; O2SAT 100
--- NOTE | 2024-03-17 10:37 | CRLHL7_ITS ---
For Patients: As a result of the Century Cures Act, medical imaging exams and procedure reports are released immediately into your electronic medical record. You may view this report before your referring provider. If you have questions, please contact your health care provider. Indication: CONSTIPATION, ABD PAIN. Technique: Abdomen 3 view. Comparison: Abdominal radiographs dated 03/07/2024. Findings/Impression: Bowel: Bowel gas pattern is normal. Prominent left colonic stool burden, which can be seen the setting of constipation. Soft tissues: No sign of free air. No sign of soft tissue mass. No suspicious calcifications. Bones: No acute findings. Redemonstrated thoracolumbar dextrocurvature. Dictated by Tito Fuentes MD @ 03/17/2024 11:09:48 AM (Electronically Signed)
[2024-03-17 11:31] LABS: Lactate Sepsis w/Reflex* 1.1 mmol/L (0.5-1.9)
[2024-03-17 11:35] LABS: Basophils Absolute Auto 0.09 K/uL (0.00-0.30); Basophils Percent Auto 1.8 % (0.0-3.0); Eosinophils Absolute Auto 0.03 K/uL (0.00-0.50); Eosinophils Percent Auto 0.6 % (0.0-7.0); Hematocrit 43.5 % (33.0-51.0); Hemoglobin* 14.5 gm/dL (12.0-16.0); Lymphocytes Absolute Auto 1.07 K/uL (0.90-2.90); Lymphocytes Percent Auto 21.6 % (20-44); Mean Corpuscular HGB Conc 33 gm/dL (32-36); Mean Corpuscular Hemoglobin 31 pg (26-34); Mean Corpuscular Volume 92 fL (80-100); Monocytes Percent Auto 6.5 % (0.0-11.0); Neutrophils Absolute Auto 3.45 K/uL (1.7-7.0); Neutrophils Percent Auto 69.5 % (42.0-72.0); Platelet Count* 220 K/uL (140-440); RDW Coefficient of Variation % 13.5 % (11.5-15.5); Red Blood Count 4.73 m/uL (4.00-5.20); White Blood Count* 4.96 K/uL (4.50-11.00)
[2024-03-17 11:41] LABS: Appearance Urine Clear (Clear); Bilirubin Urine Negative (Negative); Blood Urine 3+ (Negative); Color Urine Yellow (Yellow); Glucose Urine Negative (Negative); Ketones Urine Negative (Negative); Leukocyte Esterase Urine Trace (Negative); Nitrite Urine Negative (Negative); Protein Urine Negative (Negative); Specific Gravity Urine 1.015 (1.000-1.030); Urobilinogen Urine 0.2 (0.2-1.0)
[2024-03-17 11:45] LABS: Ur HCG Qualitative* Negative (Negative)
[2024-03-17 11:48] LABS: Squamous Epithelial Cell Urine Few (None-Few); WBC Urine 0-2 (0-5)
[2024-03-17 11:48] LABS: Slide Review Reflex No
[2024-03-17 11:55] LABS: Chloride* 103 mmol/L (96-114); Potassium* 3.9 mmol/L (3.6-5.1); Sodium* 138 mmol/L (135-149)
[2024-03-17 11:58] LABS: Creatinine* 0.8 mg/dL (0.5-1.5); Estimated Glomerular Filt Rate 103 ml/min
[2024-03-17 11:59] LABS: Anion Gap 6 mEq/L (7-15); Blood Urea Nitrogen* 8 mg/dL (5-24); Calcium* 9.1 mg/dL (8.4-10.6); Carbon Dioxide* 29 mmol/L (20-32); Glucose* 93 mg/dL (60-115)
[2024-03-17 12:02] LABS: C Reactive Protein* < 0.5 mg/dL (0.5-1.0)
--- NOTE | 2024-03-17 15:26 | ED_ITS ---
HPI - General Adult General Date Seen: 03/17/24 Chief complaint: Abdominal Pain Stated complaint: Ongoing GI issues was seen here last week Time Seen by Provider: 03/17/24 10:05 Source: family Mode of arrival: ambulatory Limitations: physical limitation History of Present Illness HPI narrative: Patient is a 28-year-old young woman with Down syndrome, her parents [facility] for evaluation of possible ongoing abdominal pain. She was seen here on the , had a CT scan and labs at that time which were notable for significant stool burden. She is on MiraLax, her parents say that since that visit they has seen GI, the recommendation was to double the dose of daily MiraLax as she still not having regular stools. Apparently that had to go through some sort of process with the portal from the GI clinic and it has not happened yet so she is still on the single dose of MiraLax. They report she had a small bowel movement a couple of days ago but nothing since then. Today she was eating breakfast and then stood up and was shaking all over, then sat back down and was staring into space. 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 They are understanding is that she should not continue to be treated with antibiotics however. They are wondering if she should see a neurologist. They are also wondering if she needs a colonoscopy that was recommended by GI for next week. She has not had fevers, vomiting, or diarrhea. She is most nonverbal, does seem to respond to some questions from her parents but they indicate that she will essentially always answer in the affirmative regardless of the true answer. She had not urinated yet today, her mom says that she does feel like she needs to go but she had her hold off until she got here. Related Data Home Medications ?Medication ?Instructions ?Recorded ?Confirmed melatonin 3 mg capsule 3 mg PO HS PRN 03/05/24 03/05/24 omeprazole 40 mg capsule,delayed 40 mg PO QAM 03/05/24 03/05/24 release Previous Rx's ?Medication ?Instructions ?Recorded polyethylene glycol 3350 17 17 g PO DAILY #510 grams 03/07/24 gram/dose oral powder (Miralax) psyllium husk 3.4 gram/5.4 gram 1 tbsp PO DAILY #660 grams 03/07/24 oral powder (Metamucil) Allergies Allergy/AdvReac Type Severity Reaction Status Date / Time atropine Allergy Intermediate Verified 03/05/24 21:26 Review of Systems Status of ROS: Reports: unobtainable due to medical condition PFSH [facility] Medical History (Updated 03/17/24 @ 12:24 by Meeta Srinivasan MD) OCD (obsessive compulsive disorder) ?F42.9 - Obsessive-compulsive disorder, unspecified (ICD-10) Autism ?F84.0 - Autistic disorder (ICD-10) PANDAS (pediatric autoimmune neuropsychiatric disease associated with streptococcal infection) ?D89.89 - Other specified disorders involving the immune mechanism, not elsewhere classified (ICD-10) ?B94.8 - Sequelae of other specified infectious and parasitic diseases (ICD- 10) Celiac disease ?K90.0 - Celiac disease (ICD-10) Down syndrome ?Q90.9 - Down syndrome, unspecified (ICD-10) Colonic pseudoobstruction ?K59.81 - [place] syndrome (ICD-10) Surgical History (Updated 03/15/24 @ 00:01 by Cyndi Cortez) History of esophagogastroduodenoscopy (EGD) ?Z98.890 - Other specified postprocedural states (ICD-10) History of cholecystectomy ?Z90.49 - Acquired absence of other specified parts of digestive tract (ICD- 10) Social History What is your current living situation?: unable to answer Problems where you live: unable to answer Problems where you live details: non-verbal pt lives at [facility] In the past 12 months, utilities in danger of being shut off: unable to answer In past 12 months, lack of transportation kept you from medical appts, meetings, work, or getting things needed for daily living: unable to answer In the past 12 mos, have been you worried that your food would run out before y ou had money to buy more?: unable to answer In the past 12 mos, the food you bought just didn't last and you didn't have money to buy more?: unable to answer Highest level of school completed/degree received: 12th grade, no diploma Smoking Status: Never smoker Do you use any of these nicotine containing products: None Second hand tobacco smoke exposure: No How often do you have a drink containing alcohol: never How often do you have six or more drinks on one occasion: Never AUDIT-C Alcohol total score: 0 Non-prescribed substance use: denies use How often does anyone, including family, friends and others, physically hurt you : unable to answer How often does anyone, including family, friends and others, insult or talk down to you: unable to answer How often does anyone, including family, friends and others, threaten you with harm: unable to answer How often does anyone, including family, friends and others, scream or curse at you: unable to answer service: No Exam Narrative: Exam Narrative: Vital signs as noted above. In general, an alert, nontoxic young woman. She looks comfortable. Head: Normocephalic, atraumatic. Eyes: Pupils are equal reactive. Extraocular movements are full. Conjunctivae are normal. ENT: Mucous membranes are moist. Neck: Supple without lymphadenopathy. Heart: Regular rate and rhythm. No murmur or rub. Lungs: Clear bilaterally. No increased work of breathing, crackles or wheezes. Abdomen: Soft and nontender. Nondistended. Bowel sounds present. Extremities: Well perfused. No edema. No calf tenderness. Pulses intact. Neurologic: Patient is alert. Ambulatory without difficulty. Baseline mental status. Affect: Normal. Skin: Warm and dry. Well perfused. Const: Vital Signs, click to edit/add: Vital Signs - 24 hr 03/17/24 10:03 Temperature 98 F Pulse Rate [Pulse Oximeter] 80 Respiratory Rate 18 Blood Pressure [Le ft Upper Arm] 111/66 Pulse Oximetry 100 Oxygen Delivery Me thod Room Air Documenting provider has reviewed patient's vital signs: yes Course Course ED Course: I reviewed prior records and medical history. It sounds as if these shaking spells and staring into space spells are not new for her, she has had these periodically over the past couple of years leading to this diagnosis of PANDA. She also has a diagnosis of OCD and autism. Her abdomen is benign today. I did do a plain x-ray of the abdomen which shows a large amount of stool in the descending colon and sigmoid, otherwise normal bowel gas pattern without evidence of obstruction or free air. Labs are reassuring, her white blood cell count is 5, normal diff, electrolytes are normal, CRP is less than 0.5. I did do UA today; she was able to void without difficulty after having had a, per her parents, very large bowel movement here. UA shows 5-10 red cells otherwise negative, I also checked a test which was negative. Given reassuring labs and benign abdominal exam, discussed with parents I do not think we need to repeat a CT scan today, they are comfortable with that. I do think it would be reasonable for her to see her neurologist, explained to them that that is something they will have to set up as an outpatient as I do not have the ability to arrange that for them. I do think if GI is recommending colonoscopy, given her history of celiac etcetera that it is reasonable to pursue that. I wrote an order so that the [facility] can start giving her MiraLax 2 capsules daily instead of 1. For new symptoms such as vomiting, fevers, bloody stools etcetera return to the emergency department at any time. Otherwise, outpatient follow-up as recommended. Vital Signs Vital signs: Initial Vital Signs Temperature 98 F 03/17/24 10:03 Temperature Source Temporal Artery Scan 03/17/24 10:03 Pulse Rate 80 03/17/24 10:03 Respiratory Rate 18 03/17/24 10:03 Blood Pressure 111/66 03/17/24 10:03 Blood Pressure Mean 81 03/17/24 10:03 Blood Pressure Position Supine 03/17/24 10:03 Pulse Oximetry 100 03/17/24 10:03 Oxygen Delivery Method Room Air 03/17/24 10:03 Vital Signs Temperature 98 F 03/17/24 10:03 Pulse Rate 80 03/17/24 10:03 Respiratory Rate 18 03/17/24 10:03 Blood Pressure 111/66 03/17/24 10:03 Pulse Oximetry 100 03/17/24 10:03 Oxygen Delivery Method Room Air 03/17/24 10:03 Temperature 98 F 03/17/24 10:03 Pulse Rate 80 03/17/24 10:03 Respiratory Rate 18 03/17/24 10:03 Blood Pressure 111/66 03/17/24 10:03 Pulse Oximetry 100 03/17/24 10:03 Oxygen Delivery Method Room Air 03/17/24 10:03 Medical Decision Making Lab Data Labs: Lab Results 03/17/24 03/17/24 Range/Units 11:15 11:25 WBC 4.96 (4.50-11.00) K/uL RBC 4.73 (4.00-5.20) m/uL Hgb 14.5 (12.0-16.0) gm/dL Hct 43.5 (33.0-51.0) % MCV 92 (80-100) fL MCH 31 (26-34) pg MCHC 33 (32-36) gm/dL RDW Coeff of Jose 13.5 (11.5-15.5) % Plt Count 220 (140-440) K/uL Neut % (Auto) 69.5 (42.0-72.0) % Lymph % (Auto) 21.6 (20-44) % [place]ne % (Auto) 6.5 (0.0-11.0) % Eos % (Auto) 0.6 (0.0-7.0) % Baso % (Auto) 1.8 (0.0-3.0) % Neut # (Auto) 3.45 (1.7-7.0) K/uL Lymph # (Auto) 1.07 (0.90-2.90) K/uL Duc[place]ne # (Auto) 0.30 (0.00-0.90) K/UL Eos # (Auto) 0.03 (0.00-0.50) K/uL Baso # (Auto) 0.09 (0.00-0.30) K/uL Abs Immat Gran (auto) 0.00 (0.00-0.30) K/uL Imm/Tot Granulo (auto) 0.0 % Sodium 138 (135-149) mmol/L Potassium 3.9 (3.6-5.1) mmol/L Chloride 103 (96-114) mmol/L Carbon Dioxide 29 (20-32) mmol/L Anion Gap 6 L (7-15) mEq/L BUN 8 (5-24) mg/dL Creatinine 0.8 (0.5-1.5) mg/dL Estimated GFR 103 ml/min Glucose 93 (60-115) mg/dL Lactate 1.1 (0.5-1.9) mmol/L Calcium 9.1 (8.4-10.6) mg/dL C-Reactive Protein < 0.5 L (0.5-1.0) mg/dL Urine Color Yellow (Yellow) Urine Appearance Clear (Clear) Urine pH 7.0 (5.0-8.5) Ur Specific [place] 1.015 (1.000-1.030) Urine Protein Negative (Negative) Urine Glucose (UA) Negative (Negative) Urine Ketones Negative (Negative) Urine Blood 3+ A (Negative) Urine Nitrite Negative (Negative) Urine Bilirubin Negative (Negative) Urine Urobilinogen 0.2 (0.2-1.0) Ur Leukocyte Esterase Trace A (Negative) Urine RBC 5-10 A (0-2) Urine WBC 0-2 (0-5) Ur Squamous Epith Cells Few (None-Few) Urine Bacteria None (None) Urine HCG, Qual Negative (Negative) Discharge Plan Discharge Clinical Impression: Constipation Patient Disposition: Home w/ Parent or Adult Condition: Improved Instructions: Constipation (DC) Additional Instructions: Increase MiraLax dose as previously discussed. Order written for the [facility]. Follow-up with GI as planned. Follow-up with primary care as planned. Consider Neurology follow-up for discussion of PANDA/observed neurologic changes. Prescriptions: No Action melatonin 3 mg capsule 3 mg PO HS PRN omeprazole 40 mg capsule,delayed release(DR/EC) 40 mg PO QAM polyethylene glycol 3350 [Miralax] 17 gram/dose powder 17 g PO DAILY Qty: 510 3RF Metamucil 3.4 gram/5.4 gram powder 1 tbsp PO DAILY Qty: 660 3RF Rx Instructions: mix into at least 8 oz of water or juice before administering Follow Up/Referrals: Niesha Michele PA-C [Primary Care Provider] - Stand Alone Forms: MyHealth Info Instructions
== END 2024-03-17 12:35 | disposition home or self-care (01) ==
PROVIDERS: Emergency Provider Emergency Medicine; PCP Physician Assistant Medical
DX: K59.00 Constipation, unspecified (principal)
CPT/HCPCS: 36415; 74019; 80048; 81001; 81025; 83605; 85025; 86140; 87086; 99283; 99284